=== PATIENT | male | born 1970 | race Two or more races ===

== ENCOUNTER 2018-07-12 04:38 | Emergency (ER) | payer OTHER ==
[~2018-07-12] VITALS: Ht 177.8 cm; Wt 59.0 kg
[2018-07-12 05:13] VITALS: BP 147/84
[2018-07-12] MEDS ORDERED: HYDROcodone-ACET 10/325MG TAB PO ONE (06:00)
== END 2018-07-12 06:07 | disposition home or self-care (01) ==
LOC: ER 04:38 → EEVIPCON 04:38 → ER 06:05
DX: S63.282A Dislocation of proximal interphalangeal joint of right middle finger, initial encounter (principal); X58.XXXA Exposure to other specified factors, initial encounter; Y93.89 Activity, other specified; Y99.8 Other external cause status; Y92.89 Other specified places as the place of occurrence of the external cause
CPT/HCPCS: 26770; 73140